=== PATIENT | female | born 1995 | race Caucasian/White ===

== ENCOUNTER 2018-05-30 20:07 | Emergency (ER) | payer SELFPAY ==
[2018-05-30 20:09] VITALS: BP 142/83; PULSE 118; PULSE 120; RESP 14; RESP 20; TEMP 37.1; O2SAT 97; O2SAT 99; BMI 23.8
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
[2018-05-30] MEDS: Ketorolac 60 MG/2 ML Vial IM (20:46)
[2018-05-30] MEDS: Ondansetron ODT 4 MG Tablet PO (20:46)
[2018-05-30 21:05] VITALS: BP 124/78; PULSE 112; RESP 20; O2SAT 100
== END 2018-05-30 21:06 | disposition home or self-care (01) ==
LOC: ED 20:40
PROVIDERS: Emergency Provider Emergency Medicine
DX: S16.1XXA Strain of muscle, fascia and tendon at neck level, initial encounter (principal); R11.0 Nausea; V89.2XXA Person injured in unspecified motor-vehicle accident, traffic, initial encounter; Y93.9 Activity, unspecified; Y92.9 Unspecified place or not applicable
CPT/HCPCS: 96372; 99283

== ENCOUNTER 2020-01-14 15:38 | Emergency (ER) | payer MEDICAID, SELFPAY ==
[2020-01-14 15:39] VITALS: BP 147/82; PULSE 121; RESP 19; TEMP 36.9; O2SAT 97; BMI 25.7
[2020-01-14 16:43] LABS: Absolute Lymphocyte Count 1.69 X10^3/uL (0.83-4.51); Absolute Neutrophil Count 7.2 X10^3/uL (2.0-7.7); Basophil# 0.04 X10^3/uL; Basophil% 0.4 % (0-1); Eosinophil# 0.01 X10^3/uL; Eosinophils% 0.1 % (0-5); Hematocrit 44.9 % (37-47); Hemoglobin 15.4 g/dL (12.0-15.0); Lymphocyte # 1.69 X10^3/ul (4.0); Lymphocyte % 17.6 % (19-41); Mean Corp Hgb Conc 34.3 g/dL (32-36); Mean Corpuscular Hgb 31.9 pg (27.0-32.0); Mean Platelet Vol. 9.7 fl (6.2-12.0); Monocyte# 0.66 X10^3/uL; Monocyte% 6.9 % (0-10); NRBC Flagged by Analyzer 0 % (0-5); Neutrophil # 7.15 X10^3/uL (2.7-7.7); Neutrophil % 74.7 % (47-70); Platelet Count 245 K/mm3 (150-450); RBC Distribution Width CV 11.3 % (11.6-14.6); RBC Distribution Width SD 38.4 fl (35.1-43.9); Red Blood Count 4.83 M/mm3 (4.2-5.4); White Blood Count 9.6 K/mm3 (4.4-11.0)
[2020-01-14 16:59] LABS: Anion Gap 6 (5-15); BUN 10 mg/dL (7-18); BUN/Creat Ratio 14.1 RATIO (10-20); Calcium,Total 9.1 mg/dL (8.5-10.1); Chloride 106 mmol/L (98-107); Creatinine, Serum 0.71 mg/dL (0.55-1.02); EST Glomerular Filtration Rate 106 mL/min (>60); Est Glom Filt Rate - Afr Amer 128 mL/min (>60); Estimated Creatinine Clearance 103.69 ml/min; Glucose 88 mg/dL (74-106); Sodium Level 137 mmol/L (136-145)
[2020-01-14 17:22] LABS: hCG Titer Quant., Serum 1027 mIU/mL (1-3)
--- NOTE | 2020-01-14 17:32 | US_ITS ---
STUDY: FIRST TRIMESTER OBSTETRICAL ULTRASOUND REASON FOR EXAM: Female, 24 years old VAGINAL BLEEDING WITH , beta-hCG 1027 LMP: 01/01/2020 TECHNIQUE: Transvaginal TECHNICAL QUALITY: Adequate. PRIOR ULTRASOUND: None. FINDINGS: No intrauterine gestation is visible. The uterus measures 6.7 x 4.4 x 3.3 cm. There is no demonstrated uterine fibroid. The cervix is closed. The right ovary measures 3.3 x 2.8 x 1.5 cm. There is no right ovarian cyst. There is no visualized right adnexal mass or complex lesion. The left ovary measures 3.0 x 2.5 x 1.6 cm. There is no left ovarian cyst. There is no visualized left adnexal mass or complex lesion. There is no fluid in the cul de sac. US/Transvaginal w/Preg US IMPRESSION: No intrauterine gestation is visible. This ultrasound result could suggest intrauterine gestation too early for sonographic detection, missed , or ectopic gestation of unknown location. Continued beta hCG and ultrasound follow-up is recommended. Electronically Signed: Mele Anguiano MD at 19:09 EDT Tel , Service support ,
--- NOTE | 2020-01-14 17:43 | ED.VIS.GEN ---
History of Present Illness Chief Complaint: Vag Bld, Preg Informant: Patient Onset: Month(s) Maximum Severity: Mild Narrative: The patient has no past history other than to report she has chronic pelvic pain for almost her entire adult life, she at one time saw providers for notes with a diagnosis established, she has history of intermittent UTIs she noticed some vaginal spotting noticed that she missed a menstrual cycle last one being in November did not have one for December went to urgent care today was found to be given all the above she was sent to the emergency room for evaluation, she does not report any morning sickness breast soreness etc. she has no history of ectopic or any documented or [employer] conditions her only complaint now is intermittent vaginal bleeding and intermittent pelvic cramps Past Medical History - Allergies and Home Meds Allergies/Adverse Reactions: Allergies No Known Allergies Allergy (Verified 01/14/20 15:39) Primary Care Physician: Care Physician,No Primary [Primary Care Provider] - Past Medical History: - Smoking Status: Never smoker Review of Systems ROS: - Pelvic pain type unspecified General: Denies: Chills, Fever, Sweats Eyes: Denies: Visual changes - bilaterally, Diplopia ENT: Denies: Rhinorrhea, Sore throat Cardiovascular: Denies: Chest pain, Palpitations Respiratory: Denies: Dyspnea, Cough, Dyspnea on exertion Gastrointestinal: Denies: Abdominal pain, Nausea, Vomiting, Diarrhea, Melena, Hematochezia Genitourinary: Reports: Hematuria, - - Vaginal spotting pelvic cramps. Denies: Dysuria, Frequency Musculoskeletal: Denies: Back pain, Extremity Pain Skin: Denies: Rash, Wounds Neurological: Denies: Headache, Weakness, Numbness Physical Exam Vital Signs/Narrative: Vital Signs Temp Pulse Resp BP Pulse Ox 01/14/20 15:39 98.5 F 121 H 19 H 147/82 H 97 General: Well nourished, Well developed, No Acute Distress Head: Normocephalic, Atraumatic Eyes: Perrl, EOMI ENT: Moist mucous membranes, No rhinorrhea Neck: Supple, Nontender Cardiovascular: Regular rate, Regular rhythm, No murmurs Respiratory: No distress, CTA bilaterally, Chest nontender Abdomen: Soft, Nontender, Nondistended, Normal bowel sounds, - - Abdomen is soft there is no tenderness rebound guarding organomegaly she complains of pelvic pain when it strikes her her backs unremarkable there is no rebound or guarding she is currently appears asymptomatic Back: Nontender, Normal Inspection Extremities: Nontender, No edema Skin: Normal color, No rash Neurological: Alert, Oriented x3, Cranial nerves II-XII grossly intact, Normal Strength, Normal Sensation Psychological: Normal affect, Normal Mood Diagnostic/Tx/Re-eval - Medical Decision Making The patient is quite anxious by her history related to all of the above she did not realize she was she was seen in urgent care center found to be given all the above directed to come to the emergency department they did explain to her the concept of ectopic she expresses concern about the potential I explained to length obtain screening labs ultrasound and proceed from there The patient by history would be about 5 to 6 weeks based on her dates, ED screening evaluation labs are unremarkable a negative, pelvic ultrasound shows no IUP, no adnexal mass no free fluid, she is resting company bed no distress spoke with Dr. Patricia Montoya on-call for [facility] OFFICE ASSISTANT discussed the case in detail agree she can follow-up in the office in the next day or 2 repeat quant no later than Sunday to be seen before the to return for change in symptoms, we did again caution the patient related to ectopic that is occult she understands pelvic rest and will return for change in symptoms pelvic pain increasing or bleeding and she will follow-up with BILINGUAL OFFICE ASSISTANT in a day or 2 the patient is comfortable with this plan Home stable Final impression bleeding threatened AB versus early ectopic versus early ED Disposition - Plan for ED Patient: Instructions: Miscarriage, ED MISCARRIAGE Completed, ED Possible Miscarriage Threatened , ED ECTOPIC RULE OUT Referrals: Care Physician,No Primary [Primary Care Provider] - Cherry Lowery MD [STAFF PHYSICIAN] - Additional Instructions: Please call the BILINGUAL OFFICE ASSISTANT office to be seen in 1 to 2 days, please have your hCG test repeated on Sunday prior to the BILINGUAL OFFICE ASSISTANT office visit, return for any pelvic pain bleeding worsening symptoms
[2020-01-14] MEDS: 0.9% Normal Saline 1,000 ML 999 ML IV (17:52)
[2020-01-14 20:10] VITALS: PULSE 105; RESP 14; O2SAT 99
== END 2020-01-14 20:11 | disposition home or self-care (01) ==
PROVIDERS: Emergency Provider Emergency Medicine
DX: O00.90 Unspecified ectopic pregnancy without intrauterine pregnancy (principal); Z87.440 Personal history of urinary (tract) infections
CPT/HCPCS: 76817; 80048; 84702; 85025; 86900; 86901; 96360; 99283; J7030; A4216

== ENCOUNTER 2020-01-15 13:48 | Emergency (ER) | payer MEDICAID, SELFPAY ==
[2020-01-14 15:39] VITALS: BMI 25.7
[2020-01-15 13:49] VITALS: BP 128/87; PULSE 132; RESP 18; TEMP 36.2; O2SAT 96; BMI 24.7
--- NOTE | 2020-01-15 14:03 | US_ITS ---
STUDY: FIRST TRIMESTER OBSTETRICAL ULTRASOUND REASON FOR EXAM: Female, 24 years old BLEEDING HCG 1027 LMP: 12/03/2019. TECHNIQUE: Transvaginal. TECHNICAL QUALITY: Adequate. PRIOR ULTRASOUND: 01/14/2020. FINDINGS: The uterus measures 8.5 x 3.6 x 3.9 cm. Endometrial thickness 7 mm. Sac or cystic lesion is noted in the lower uterine segment. This is complex in appearance with septation and complex material in the portion of the lesion. No yolk sac or embryonic pole is identified. Right ovary is normal in size and echogenicity measuring 2.7 x 1.5 x 2.5 cm. No mass or dominant cyst. Arterial and venous flow are documented. Left ovary is normal in size and echogenicity, measuring 2.8 x 1.5 x 2.3 cm. No mass or dominant cyst. Arterial and venous flow are documented. No free fluid in the cul-de-sac. US/Transvaginal w/Preg US IMPRESSION: 1. Complex cystic lesion in the lower uterine segment concerning for in progress. Electronically Signed: Sandy Bustillos MD at 16:50 EDT Tel , Service support ,
--- NOTE | 2020-01-15 14:07 | ED.DCSUM_ITS ---
History of Present Illness Chief Complaint: Informant: Patient Narrative: 24-year-old female with no significant past medical history presents with concern for vaginal bleeding and abdominal pain. Patient states that 2 days ago she began spotting. States her last menstrual period was December 02. States that she had positive test at home as well as yesterday in the emergency department. Ultrasound was done yesterday which showed no intrauterine gestation. Was due to follow-up with NONDESTRUCTIVE TESTER Dr. Andres Serrano tomorrow. However she began having worsening abdominal pain. Was advised by her NONDESTRUCTIVE TESTER to come into the emergency department for repeat ultrasound. Past Medical History - Allergies and Home Meds Allergies/Adverse Reactions: Allergies No Known Allergies Allergy (Verified 01/15/20 13:53) Primary Care Physician: Care Physician,No Primary [Primary Care Provider] - Prior records reviewed: Yes Past Medical History: None Surgical History: no surgical history Lives: Alone Smoking Status: Never smoker Alcohol: None Drugs: None Review of Systems General: Denies: Chills, Fever, Sweats Eyes: Denies: Visual changes - bilaterally, Diplopia ENT: Denies: Rhinorrhea, Sore throat Cardiovascular: Denies: Chest pain, Palpitations Respiratory: Denies: Dyspnea, Cough, Dyspnea on exertion Gastrointestinal: Reports: Abdominal pain. Denies: Nausea, Vomiting, Diarrhea, Melena, Hematochezia Genitourinary: Reports: - - vaginal bleeding. Denies: Dysuria, Hematuria, Frequency Musculoskeletal: Denies: Back pain, Extremity Pain Skin: Denies: Rash, Wounds Neurological: Denies: Headache, Weakness, Numbness Physical Exam Vital Signs/Narrative: Vital Signs Temp Pulse Resp BP Pulse Ox 01/15/20 13:49 97.1 F L 132 H 18 128/87 H 96 General: Well nourished, Well developed, No Acute Distress Head: Normocephalic, Atraumatic Eyes: Perrl, EOMI ENT: Moist mucous membranes, No rhinorrhea Neck: Supple, Nontender Cardiovascular: Regular rhythm, No murmurs, Tachycardia Respiratory: No distress, CTA bilaterally, Chest nontender Abdomen: Soft, Nontender, Nondistended, Normal bowel sounds Back: Nontender, Normal Inspection Extremities: Nontender, No edema Skin: Normal color, No rash Neurological: Alert, Oriented x3, Cranial nerves II-XII grossly intact, Normal Strength, Normal Sensation Psychological: Normal affect, Normal Mood Diagnostic/Tx/Re-eval Clinical Impression(s) from Imaging Studies Obstetrics Ultrasound 01/15/20 14:03 IMPRESSION: 1. Complex cystic lesion in the lower uterine segment concerning for in progress. Electronically Signed: Sandy Bustillos MD at 16:50 EDT Tel , Service support , Laboratory Data 01/15/20 01/15/20 14:12 14:12 WBC 10.6 RBC 4.59 Hgb 14.5 Hct 42.4 MCV 92.4 MCH 31.6 MCHC 34.2 RDW Std Deviation 37.7 RDW Coeff of Juli 11.2 L Plt Count 225 MPV 9.8 Immature Gran % (Auto) 0.400 Neut % (Auto) 80.0 H Lymph % (Auto) 13.5 L Love % (Auto) 5.7 Eos % (Auto) 0.0 Baso % (Auto) 0.4 Absolute Neuts (auto) 8.5 H Absolute Lymphs (auto) 1.43 Nucleated RBC % 0 HCG, Quant 468 H - Medical Decision Making Patient appears well and nontoxic. Initially very anxious with tachycardia. Benign abdominal exam without peritonitis. No active vaginal hemorrhage. Lab work shows a decreasing quantitative beta hCG. Ultrasound shows a cystic lesion low in the uterus concerning for inevitable . Patient is deferring vaginal exam at this time. Spoke with NONDESTRUCTIVE TESTER who is agreeable with follow-up. Discharged home in stable condition. ED Disposition - Plan for ED Patient: Disposition: Home or Assisted Living Diagnosis: Inevitable Instructions: ED MISCARRIAGE Incomplete Referrals: Marlin Patiño MD [STAFF PHYSICIAN] -
[2020-01-15 14:33] LABS: Absolute Lymphocyte Count 1.43 X10^3/uL (0.83-4.51); Absolute Neutrophil Count 8.5 X10^3/uL (2.0-7.7); Basophil# 0.04 X10^3/uL; Basophil% 0.4 % (0-1); Hematocrit 42.4 % (37-47); Hemoglobin 14.5 g/dL (12.0-15.0); Lymphocyte # 1.43 X10^3/ul (4.0); Lymphocyte % 13.5 % (19-41); Mean Corp Hgb Conc 34.2 g/dL (32-36); Mean Corpuscular Hgb 31.6 pg (27.0-32.0); Mean Corpuscular Volume 92.4 fL (81-99); Mean Platelet Vol. 9.8 fl (6.2-12.0); Monocyte# 0.61 X10^3/uL; Monocyte% 5.7 % (0-10); NRBC Flagged by Analyzer 0 % (0-5); Platelet Count 225 K/mm3 (150-450); RBC Distribution Width CV 11.2 % (11.6-14.6); RBC Distribution Width SD 37.7 fl (35.1-43.9); Red Blood Count 4.59 M/mm3 (4.2-5.4); White Blood Count 10.6 K/mm3 (4.4-11.0)
[2020-01-15] MEDS: LORazepam 2 MG/ML Syringe 0.5 MG IV (14:40)
[2020-01-15 15:05] LABS: hCG Titer Quant., Serum 468 mIU/mL (1-3)
[2020-01-15 17:12] VITALS: BP 119/74; PULSE 78; RESP 19; O2SAT 99
== END 2020-01-15 17:13 | disposition home or self-care (01) ==
PROVIDERS: Emergency Provider Emergency Medicine
DX: O03.9 Complete or unspecified spontaneous abortion without complication (principal)
CPT/HCPCS: 76817; 84702; 85025; 96374; 99283; A4216

== ENCOUNTER 2020-02-19 00:42 | Emergency (ER) | payer MEDICAID, SELFPAY ==
[2020-01-22 14:14] VITALS: BMI 24.7
[2020-02-19 00:43] VITALS: BP 91/53; PULSE 125; RESP 24; TEMP 36.6; O2SAT 98; BMI 27.0
[2020-02-19 00:48] VITALS: BP 84/68; PULSE 107; RESP 22; O2SAT 98
--- NOTE | 2020-02-19 01:14 | ED.DCSUM_ITS ---
History of Present Illness Chief Complaint: Allergic Reaction Informant: Patient Narrative: Patient is a 24-year-old previously healthy female who presents to the emergency department for allergic reaction to eating a peach. She states she ate a peach around an hour ago. Shortly after that she broke out into hives all over her body. She has been very itching all over. She took 2 Benadryl prior to coming into the emergency department. She denies any oral swelling or shortness of breath. She states that she does feel very anxious otherwise though. He did have one episode of vomiting. She is never had this reaction to peaches before in the past. No other known allergic reactions. She denies any chest pain. No abdominal pain. Since arrival to the emerge department her hives have been going down significantly. She is still having the itching. She denies smoking, drinking drug use. Does not take any medications. No previous surgeries. Past Medical History - Allergies and Home Meds Allergies/Adverse Reactions: Allergies No Known Allergies Allergy (Verified 01/22/20 14:14) Primary Care Physician: Mandy Esposito MD [STAFF PHYSICIAN] - 2 Days Prior records reviewed: Yes Past Medical History: None Surgical History: no surgical history Smoking Status: Never smoker Alcohol: None Drugs: None Review of Systems All systems negative except as indicated General: Denies: Chills, Fever, Sweats Eyes: Denies: Visual changes - bilaterally, Diplopia ENT: Denies: Rhinorrhea, Sore throat Cardiovascular: Denies: Chest pain, Palpitations Respiratory: Denies: Dyspnea, Cough, Dyspnea on exertion Gastrointestinal: Reports: Vomiting. Denies: Abdominal pain, Nausea, Diarrhea Musculoskeletal: Denies: Back pain, Extremity Pain Skin: Reports: Rash. Denies: Wounds Neurological: Denies: Headache, Weakness, Numbness Psych: Reports: Anxiety Allergy: Reports: Uticaria. Denies: Swelling of the mouth, Swelling of the ton miryam Physical Exam Vital Signs/Narrative: Vital Signs Temp Pulse Resp BP Pulse Ox 02/19/20 00:48 107 H 22 H 84/68 L 98 02/19/20 00:43 97.8 F 125 H 24 H 91/53 L 98 Inital Vital Signs reviewed: Yes General: Well nourished, Well developed, No Acute Distress Head: Normocephalic, Atraumatic Eyes: Perrl, EOMI ENT: Moist mucous membranes, No rhinorrhea, - - No oral pharyngeal swelling. Uvula midline. No stridor present. Neck: Supple, Nontender, No lymphadenopathy Cardiovascular: Regular rhythm, No murmurs, Tachycardia Respiratory: No distress, CTA bilaterally, Chest nontender Abdomen: Soft, Nontender, Nondistended, Normal bowel sounds Back: Nontender, Normal Inspection Extremities: Nontender, No edema Skin: - - No urticaria currently present. The skin does appear erythematous. She is scratching currently. Neurological: Alert, Oriented x3, Cranial nerves II-XII grossly intact, Normal Strength, Normal Sensation Psychological: - - Anxious Diagnostic/Tx/Re-eval - Medical Decision Making Patient presents emerged part for urticaria from eating a peach. She took Benadryl prior to coming into the emergency department. She is still having some itching. No oral involvement. Will give Pepcid and Solu-Medrol here in the emergency department and observe to ask her symptoms continue to improve. Patient monitored in the ED and she is feeling much better. She does feel comfortable going home at this time. I was planning on writing her prescription for steroids but she is refusing. She states that she will continue to take Benadryl as needed at home. If she develops any shortness of breath, oral swelling she is to return to the emergency department immediately. Otherwise need to follow-up with her PCP. Patient advised to avoid peaches in the future. He understands and is agreeable this plan. ED Disposition - Plan for ED Patient: Disposition: Home or Assisted Living Diagnosis: Urticaria, Allergic reaction Instructions: ED General Allergic Reactions Referrals: Mandy Esposito MD [STAFF PHYSICIAN] - 2 Days
[2020-02-19] MEDS: Famotidine 200 MG/20 ML MDV 20 MG in 0.9% Normal Saline (Pres. free 8 ML 300 MG IV (01:20)
[2020-02-19] MEDS: MethylPREDNISolone 125 MG/2 ML Vial IV (01:20)
[2020-02-19 02:41] VITALS: BP 104/60; PULSE 76; RESP 16; O2SAT 98
== END 2020-02-19 02:41 | disposition home or self-care (01) ==
PROVIDERS: Emergency Provider Emergency Medicine
DX: T78.1XXA Other adverse food reactions, not elsewhere classified, initial encounter (principal); L50.0 Allergic urticaria; X58.XXXA Exposure to other specified factors, initial encounter
CPT/HCPCS: 96361; 96365; 96374; 96375; 99282; A4216; J3490

== ENCOUNTER → 2020-04-13 11:00 | Outpatient (CLI) | payer MEDICAID, SELFPAY ==
[2020-04-13 10:51] VITALS: BMI 27.0
[2020-04-13 11:48] LABS: T4 Free Direct 0.92 ng/dL (0.76-1.46); Thyroid Stim Hormone (TSH) 1.42 uIU/mL (0.358-3.74)
== END ==
PROVIDERS: Referring Provider Nurse Practitioner Women's Health; Visit Provider Nurse Practitioner Women's Health
DX: R63.5 Abnormal weight gain (principal); Z13.29 Encounter for screening for other suspected endocrine disorder
CPT/HCPCS: 36415; 84439; 84443

== ENCOUNTER → 2020-08-10 10:46 | Outpatient (CLI) | payer MEDICAID, SELFPAY ==
[2020-07-14 12:57] VITALS: BMI 28.7
[2020-08-10 12:43] LABS: Absolute Lymphocyte Count 1.82 X10^3/uL (0.83-4.51); Absolute Neutrophil Count 3.8 X10^3/uL (2.0-7.7); Basophil# 0.03 X10^3/uL; Basophil% 0.5 % (0-1); Eosinophil# 0.15 X10^3/uL; Eosinophils% 2.4 % (0-5); Hematocrit 44.5 % (37-47); Hemoglobin 14.6 g/dL (12.0-15.0); Lymphocyte # 1.82 X10^3/ul (4.0); Mean Corp Hgb Conc 32.8 g/dL (32-36); Mean Corpuscular Hgb 30.6 pg (27.0-32.0); Mean Corpuscular Volume 93.3 fL (81-99); Mean Platelet Vol. 10.4 fl (6.2-12.0); Monocyte# 0.45 X10^3/uL; Monocyte% 7.2 % (0-10); NRBC Flagged by Analyzer 0 % (0-5); Neutrophil # 3.82 X10^3/uL (2.7-7.7); Neutrophil % 60.7 % (47-70); Platelet Count 222 K/mm3 (150-450); RBC Distribution Width CV 11.7 % (11.6-14.6); Red Blood Count 4.77 M/mm3 (4.2-5.4); White Blood Count 6.3 K/mm3 (4.4-11.0)
[2020-08-10 13:29] LABS: T3 Total - Triiodothyronine 1.29 ng/mL (0.6-1.81); Vitamin D,25 Hydroxy 22.4 ng/mL
[2020-08-10 13:34] LABS: Ferritin 25 ng/mL (8-252); T4 Free Direct 0.97 ng/dL (0.76-1.46); Thyroid Stim Hormone (TSH) 1.63 uIU/mL (0.358-3.74)
[2020-08-11 20:56] LABS: ANTINUCLEAR ANTIBODIES DIRECT Negative (Negative)
[2020-08-12 03:07] LABS: Dilute Prothrombin Time (dPT) 39.9 sec (0.0-55.0); Dilute Russell Viper Venom 33.4 sec (0.0-47.0); PTT-LA 42.5 sec (0.0-51.9); Thrombin Time 15.9 sec (0.0-23.0); dPT Confirm Ratio 1.12 Ratio (0.00-1.40)
[2020-08-12 14:17] LABS: Anti-Cardiolipin Ab, IgA, Qn < 9 APL U/mL (0-11); Anti-Cardiolipin Ab, IgG, Qn < 9 GPL U/mL (0-14); Anti-Cardiolipin Ab, IgM, Qn 9 MPL U/mL (0-12); Interpretation Comment: (.); Thyroid Peroxidase AB < 9 IU/mL (0-34)
== END ==
PROVIDERS: PCP Internal Medicine
DX: L40.0 Psoriasis vulgaris (principal); L65.9 Nonscarring hair loss, unspecified; D68.312 Antiphospholipid antibody with hemorrhagic disorder
CPT/HCPCS: 36415; 82306; 82728; 84439; 84443; 84480; 85025; 86038; 86147; 86376

== ENCOUNTER → 2020-11-24 14:21 | Outpatient (CLI) | payer MEDICAID, SELFPAY ==
[2020-11-24 13:24] VITALS: BMI 27.0
[2020-11-24 15:44] LABS: Erythrocyte Sedimentation Rate < 1 mm/hr (0-30)
[2020-11-24 15:47] LABS: Absolute Lymphocyte Count 1.87 X10^3/uL (0.83-4.51); Absolute Neutrophil Count 3.5 X10^3/uL (2.0-7.7); Basophil# 0.04 X10^3/uL; Basophil% 0.7 % (0-1); Eosinophil# 0.09 X10^3/uL; Eosinophils% 1.5 % (0-5); Hematocrit 45.5 % (37-47); Lymphocyte # 1.87 X10^3/ul (0.83-4.51); Mean Corpuscular Hgb 30.7 pg (27.0-32.0); Mean Corpuscular Volume 93.2 fL (81-99); Mean Platelet Vol. 10.1 fl (6.2-12.0); Monocyte# 0.51 X10^3/uL; Monocyte% 8.4 % (0-10); NRBC Flagged by Analyzer 0 % (0-5); Neutrophil # 3.51 X10^3/uL (2.7-7.7); Neutrophil % 58.1 % (47-70); Platelet Count 247 K/mm3 (150-450); RBC Distribution Width CV 11.7 % (11.6-14.6); RBC Distribution Width SD 40.1 fl (35.1-43.9); Red Blood Count 4.88 M/mm3 (4.2-5.4)
[2020-11-24 15:55] LABS: ALB/GLOB Ratio 1.4 RATIO (0.9-2.4); AST(SGOT) 14 U/L (15-37); Alanine Aminotransfer ALT/SGPT 19 U/L (13-56); Albumin, Serum 4.6 g/dL (3.2-5.0); Alkaline Phosphatase 70 U/L (45-117); Anion Gap 3 (5-15); BUN 11 mg/dL (7-18); BUN/Creat Ratio 15.2 RATIO (10-20); CRP < 2.90 mg/L (0.0-3.0); Chloride 105 mmol/L (98-107); Creatinine, Serum 0.72 mg/dL (0.55-1.02); EST Glomerular Filtration Rate 103 mL/min (>60); Est Glom Filt Rate - Afr Amer 124 mL/min (>60); Globulin 3.3 g/dL (2.2-4.2); Glucose 90 mg/dL (74-106); Potassium 4.1 mmol/L (3.5-5.1); Protein, Total 7.9 g/dL (6.4-8.2); Sodium Level 139 mmol/L (136-145)
== END ==
PROVIDERS: PCP Internal Medicine; Referring Provider Physician Assistant; Visit Provider Physician Assistant
DX: M79.10 Myalgia, unspecified site (principal)
CPT/HCPCS: 36415; 80053; 85025; 85652; 86140

== ENCOUNTER → 2021-03-23 | Outpatient (CLI) | payer MEDICAID, SELFPAY ==
[2021-04-01 20:55] LABS: HPV Reflexed? NOT INDICATED
== END | disposition home or self-care (01) ==
LOC: LABSPEC 15:48
PROVIDERS: PCP Internal Medicine; Referring Provider Obstetrics & Gynecology; Visit Provider Obstetrics & Gynecology
DX: Z12.4 Encounter for screening for malignant neoplasm of cervix (principal)
CPT/HCPCS: 88175; G0145